=== PATIENT | female | born 1970 | race Caucasian/White ===

== ENCOUNTER → 2016-03-08 | Outpatient (CLI) | payer BC | LOC: BHSO 09:35 | DX: F33.41 Major depressive disorder, recurrent, in partial remission (principal) ==

== ENCOUNTER → 2016-05-02 | Outpatient (CLI) | payer BC | LOC: BHSO 08:43 | DX: F33.41 Major depressive disorder, recurrent, in partial remission (principal) ==

== ENCOUNTER → 2016-09-26 | Outpatient (CLI) | payer BC | LOC: BHSO 15:35 | DX: F33.42 Major depressive disorder, recurrent, in full remission (principal) ==

== ENCOUNTER → 2016-12-30 | Outpatient (CLI) | payer BC | LOC: BHSO 09:41 | DX: F33.41 Major depressive disorder, recurrent, in partial remission (principal) ==

== ENCOUNTER → 2017-03-03 | Outpatient (CLI) | payer BC | LOC: BHSO 10:36 | DX: F33.42 Major depressive disorder, recurrent, in full remission (principal) | CPT/HCPCS: G0463 ==

== ENCOUNTER → 2017-06-02 | Outpatient (CLI) | payer BC | LOC: BHSO 08:58 | DX: F33.42 Major depressive disorder, recurrent, in full remission (principal) | CPT/HCPCS: G0463 ==

== ENCOUNTER → 2017-10-21 | Outpatient (CLI) | payer BC | LOC: BHSO 15:32 | DX: F33.41 Major depressive disorder, recurrent, in partial remission (principal) | CPT/HCPCS: G0463 ==

== ENCOUNTER → 2017-12-23 | Outpatient (CLI) | payer BC | LOC: BHSO 15:36 | DX: F33.41 Major depressive disorder, recurrent, in partial remission (principal) | CPT/HCPCS: G0463 ==

== ENCOUNTER → 2018-02-19 | Outpatient (CLI) | payer BC | LOC: BHSO 09:59 | DX: F33.41 Major depressive disorder, recurrent, in partial remission (principal) | CPT/HCPCS: G0463 ==

== ENCOUNTER → 2018-04-09 | Outpatient (CLI) | payer BC | LOC: BHSO 15:34 | DX: F33.1 Major depressive disorder, recurrent, moderate (principal) ==

== ENCOUNTER → 2018-09-14 | Outpatient (CLI) | payer BC | LOC: BHSO 14:38 | DX: F33.41 Major depressive disorder, recurrent, in partial remission (principal) | CPT/HCPCS: G0463 ==

== ENCOUNTER → 2018-11-12 | Outpatient (CLI) | payer BC | LOC: BHSO 15:57 | DX: F33.42 Major depressive disorder, recurrent, in full remission (principal) | CPT/HCPCS: G0463 ==

== ENCOUNTER → 2019-03-09 | Outpatient (CLI) | payer BC | LOC: BHSO 16:23 | DX: F33.41 Major depressive disorder, recurrent, in partial remission (principal) | CPT/HCPCS: G0463 ==

== ENCOUNTER → 2019-08-09 | Outpatient (CLI) | payer BC | LOC: BHSO 10:36 | DX: F41.1 Generalized anxiety disorder (principal) | CPT/HCPCS: G0463 ==